=== PATIENT | female | born 1995 | race American Indian/Alaskan Native ===

== ENCOUNTER 2018-01-13 01:22 | Emergency (ER) | payer MEDICAID ==
[2018-01-13 01:38] VITALS: BP 120/80
== END 2018-01-13 02:00 | disposition left against medical advice (07) ==
LOC: ED 01:22
DX: N93.9 Abnormal uterine and vaginal bleeding, unspecified (principal); Z53.21 Procedure and treatment not carried out due to patient leaving prior to being seen by health care provider